=== PATIENT | female | born 1990 | race Caucasian/White ===

== ENCOUNTER 2016-03-06 22:28 | Emergency (ER) | payer OTHER ==
[~2016-03-06] VITALS: Ht 165.1 cm; Wt 113.4 kg
[~2016-03-06 22:28] MED LIST: AZIT250T PO; HYDR1TAB19; PRED50TA PO; PREN1COM3 PO; PROAIR RESPICL90 MCG IH; PROM118S2 PO
[2016-03-06 22:53] VITALS: BP 103/63
--- NOTE | 2016-03-06 22:54 | PHYS DOC ---
Past Medical History Past Medical History: Other Additional Past Medical Histor: eczema, HPV, genital herpes Past Surgical History: Tonsillectomy Additional Past Surgical Histo: bilateral myringotomy with tubes Alcohol Use: None Drug Use: None Adult General Chief Complaint Chief Complaint: PAIN ON URINATION [facility] Patient is a 25 year old female who presents emergency room today with a 2 day history of dysuria and hematuria. Patient states that she's had problems with urinary tract infections in the past. She states that her last one was greater than a year ago. She denies antibiotic use in the past 90 days. Patient denies pelvic pain, vaginal bleeding or vaginal discharge. Patient denies flank pain. Patient states that she finished her menstrual Yesterday. Review of Systems Review of Systems Constitutional: Denies fever or chills [] Eyes: Denies change in visual acuity, redness, or eye pain [] HENT: Denies nasal congestion or sore throat [] Respiratory: Denies cough or shortness of breath [] Cardiovascular: No additional information not addressed in [facility] [] GI: Denies abdominal pain, nausea, vomiting, bloody stools or diarrhea [] : Denies dysuria or hematuria [] Musculoskeletal: Denies back pain or joint pain [] Integument: Denies rash or skin lesions [] Neurologic: Denies headache, focal weakness or sensory changes [] Endocrine: Denies polyuria or polydipsia [] Allergies Allergies Allergies Coded Allergies Type Severity Reaction Last Updated Verified Penicillins Allergy Intermediate rash 04/23/14 Yes Sulfa (Sulfonamide Antibiotics) Allergy Intermediate 04/23/14 Yes amoxicillin trihydrate Allergy Intermediate rash 04/23/14 Yes potassium clavulanate Allergy Intermediate rash 04/23/14 Yes Physical Exam Physical Exam Constitutional: Well developed, well nourished, no acute distress, non-toxic appearance. [] HENT: Normocephalic, atraumatic, bilateral external ears normal, oropharynx moist, no oral exudates, nose normal. [] Eyes: PERRLA, EOMI, conjunctiva normal, no discharge. [] Neck: Normal range of motion, no tenderness, supple, no stridor. [] Cardiovascular:Heart rate regular rhythm, no murmur [] Lungs & Thorax: Bilateral breath sounds clear to auscultation [] Abdomen: Bowel sounds normal, soft, no tenderness, no masses, no pulsatile masses. [] Skin: Warm, dry, no erythema, no rash. [] Back: No tenderness, no CVA tenderness. [] Extremities: No tenderness, no cyanosis, no clubbing, ROM intact, no edema. [] Neurologic: Alert and oriented X 3, normal motor function, normal sensory function, no focal deficits noted. [] Psychologic: Affect normal, judgement normal, mood normal. [] Current Patient Data Vital Signs Vital Signs Date Time Temp Pulse Resp B/P Pulse Ox O2 Delivery O2 Flow Rate FiO2 03/06/16 22:53 97.2 71 16 99 Room Air 97.2 Lab Values Laboratory Tests Test 03/06/16 23:05 Urine Collection Type Unknown Urine Color Arina Urine Clarity Cloudy Urine pH 5.5 Urine Specific [place] >=1.030 Urine Protein 30mg/dL (NEG-TRACE) Urine Glucose (UA) Negativemg/dL (NEG) Urine Ketones (Stick) Negativemg/dL (NEG) Urine Blood Large (NEG) Urine Nitrite Negative (NEG) Urine Bilirubin Small (NEG) Urine Urobilinogen Dipstick 0.2mg/dL (0.2 mg/dL) Urine Leukocyte Esterase Small (NEG) Urine RBC >40/HPF (0-2) Urine WBC 1-4/HPF (0-4) Urine Squamous Epithelial Cells Many/LPF Urine Bacteria Moderate/HPF (0-FEW) Urine Mucus Marked/LPF Urine Test Negative (NEG) EKG EKG [] Radiology/Procedures Radiology/Procedures [] Course & Med Decision Making Course & Med Decision Making Pertinent Labs and Imaging studies reviewed. (See chart for details) [] Dragon Disclaimer Dragon Disclaimer This electronic medical record was generated, in whole or in part, using a voice recognition dictation system. Departure Departure Impression: Primary Impression: Urinary tract infection Disposition: HOME, SELF-CARE Condition: GOOD Referrals: TO VILLAFUERTE MD (PCP) Patient Instructions: Urinary Tract Infection, Shea-[id number] Additional Instructions: 1. Take the medication as prescribed. 2. Review the discharge instructions for self-care and reasons to return the emergency department. 3. Contact primary care doctor's office in the morning to schedule follow-up appointment to be seen within the next 7-10 days. Scripts Phenazopyridine Hcl (Pyridium)200 Mg [id number] Mg PO TID #6 TAB Prov:HERLINDA GAMA 03/06/16 Nitrofurantoin Macrocrystal (Nitrofurantoin)100 Mg Capsule1 Cap PO BID #14 CAP Prov:HERLINDA GAMA 03/06/16 HERLINDA GAMA Mar 06, 2016 22:54
[2016-03-06 23:19] LABS: NEG OBC UR NEG; POS OBC UR POS
[2016-03-06 23:21] LABS: BILIRUBIN,URINE SMALL (NEG); GLUCOSE,URINE NEGATIVE (NEG); NITRITE,URINE NEGATIVE (NEG); PH,URINE 5.5; PROTEIN,URINE 30 mg/dL (NEG-TRACE); UROBILINOGEN,URINE 0.2 mg/dL (0.2 mg/dL)
[2016-03-06 23:32] LABS: BACTERIA,URINE MODERATE /HPF (0-FEW); RBC,URINE >40 /HPF (0-2); SQUAMOUS EPITHELIAL CELL,UR MANY /LPF
[2016-03-06] MEDS ORDERED: NITR100C PO (23:41)
[2016-03-06] MEDS ORDERED: PHEN-318 PO (23:41)
== END 2016-03-06 23:48 | disposition home or self-care (01) ==
LOC: ER 22:28
DX: N39.0 Urinary tract infection, site not specified (principal); Z88.0 Allergy status to penicillin; Z88.1 Allergy status to other antibiotic agents; Z88.2 Allergy status to sulfonamides
CPT/HCPCS: 81001; 81025; 87086; 99284

== ENCOUNTER 2016-03-12 15:06 | Emergency (ER) | payer OTHER ==
[~2016-03-12] VITALS: Ht 165.1 cm; Wt 113.4 kg
[2016-03-12 15:06] VITALS: BP 107/60
[~2016-03-12 15:06] MED LIST changes: +NITR100C PO; +PHEN-318 PO
[2016-03-12 16:26] LABS: NEG OBC UR NEG; POS OBC UR POS
[2016-03-12 16:28] LABS: BILIRUBIN,URINE NEGATIVE (NEG); GLUCOSE,URINE NEGATIVE (NEG); NITRITE,URINE NEGATIVE (NEG); PROTEIN,URINE NEGATIVE (NEG-TRACE); UROBILINOGEN,URINE 0.2 mg/dL (0.2 mg/dL)
[2016-03-12] MEDS ORDERED: KETOROLAC TROMETHAMINE 60 MG/2 ML SYRINGE. IM ONE (16:30)
[2016-03-12] MEDS ORDERED: ORPHENADRINE CITRATE 60 MG/2 ML VIAL. IM ONE (16:30)
[2016-03-12 16:38] LABS: RBC,URINE RARE /HPF (0-2)
[2016-03-12 16:39] LABS: BACTERIA,URINE MODERATE /HPF (0-FEW); SQUAMOUS EPITHELIAL CELL,UR MANY /LPF
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
[2016-03-12] MEDS ORDERED: IBUP-1060 PO (17:32)
[2016-03-12] MEDS ORDERED: CYCL10TA2 PO (17:32)
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
== END 2016-03-12 18:01 | disposition home or self-care (01) ==
LOC: ER 15:06
DX: M54.2 Cervicalgia (principal); Z88.0 Allergy status to penicillin; Z88.1 Allergy status to other antibiotic agents; Z88.2 Allergy status to sulfonamides; Z88.8 Allergy status to other drugs, medicaments and biological substances; V49.40XA Driver injured in collision with unspecified motor vehicles in traffic accident, initial encounter; Y93.I9 Activity, other involving external motion; Y92.410 Unspecified street and highway as the place of occurrence of the external cause; Y99.8 Other external cause status
CPT/HCPCS: 72125; 81001; 81025; 87086; 96372; 99285; J1885; J2360

== ENCOUNTER 2016-06-04 13:10 | Emergency (ER) | payer OTHER ==
[~2016-06-04] VITALS: Ht 165.1 cm; Wt 108.9 kg
[~2016-06-04 13:10] MED LIST changes: +CYCL10TA2 PO; +IBUP-1060 PO
[2016-06-04 13:30] VITALS: BP 105/57
--- NOTE | 2016-06-04 14:25 | RAD ---
Left shoulder, 3 views, 06/04/2016: History: Pain, injury No fracture or dislocation is identified. No significant arthritic change is seen. IMPRESSION: No significant left shoulder abnormality is detected.
[2016-06-04] MEDS ORDERED: NAPR500T3 PO (14:27)
[2016-06-04] MEDS ORDERED: ORPH100T PO (14:27)
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
== END 2016-06-04 14:35 | disposition home or self-care (01) ==
LOC: ER 13:10
DX: S46.912A Strain of unspecified muscle, fascia and tendon at shoulder and upper arm level, left arm, initial encounter (principal); E66.9 Obesity, unspecified; Z88.1 Allergy status to other antibiotic agents; Z88.0 Allergy status to penicillin; Z88.2 Allergy status to sulfonamides; Z88.8 Allergy status to other drugs, medicaments and biological substances; Z68.39 Body mass index [BMI] 39.0-39.9, adult; W18.40XA Slipping, tripping and stumbling without falling, unspecified, initial encounter; Y93.89 Activity, other specified; Y92.89 Other specified places as the place of occurrence of the external cause; Y99.8 Other external cause status
CPT/HCPCS: 73030; 99284

== ENCOUNTER → 2016-07-12 | Outpatient (CLI) | payer OTHER ==
[~2016-07-12] MED LIST changes: +NAPR500T3 PO; +ORPH100T PO
--- NOTE | 2016-07-12 11:31 | KCIC ---
Indication: Abdominal pain. Patient has recent history of abdominal surgery. The visualized pancreas is unremarkable. The aorta is nonaneurysmal. The IVC is unremarkable. The liver is normal in size. There is increased echogenicity throughout the liver consistent with fatty infiltration. No discrete liver mass is detected. The gallbladder is without stones or sludge. No wall thickening or pericholecystic fluid is identified. The spleen is mildly enlarged at 13.1 cm. The kidneys are unremarkable. No calculi or hydronephrosis is identified. There is no ascites. IMPRESSION: 1. Fatty infiltration of the liver. 2. No evidence of cholelithiasis or acute cholecystitis. 3. Mild splenomegaly. Electronically signed by: Zhang Escamilla MD (07/12/2016 11:27 AM)
== END | disposition home or self-care (01) ==
LOC: KCIC US 09:17
PROVIDERS: ATTEND Family Medicine
DX: K76.0 Fatty (change of) liver, not elsewhere classified (principal); R16.1 Splenomegaly, not elsewhere classified
CPT/HCPCS: 76700

== ENCOUNTER 2017-02-25 15:58 | Emergency (ER) | payer OTHER | END 2017-02-25 16:47 | disposition home or self-care (01) | LOC: ER 15:58 | DX: S00.33XA Contusion of nose, initial encounter (principal); Z88.0 Allergy status to penicillin; Z88.1 Allergy status to other antibiotic agents; Z88.2 Allergy status to sulfonamides; Z88.8 Allergy status to other drugs, medicaments and biological substances; W51.XXXA Accidental striking against or bumped into by another person, initial encounter; Y93.89 Activity, other specified; Y99.8 Other external cause status; Y92.89 Other specified places as the place of occurrence of the external cause | CPT/HCPCS: 99281 ==

== ENCOUNTER 2017-09-03 20:35 | Emergency (ER) | payer OTHER ==
[2017-09-03 20:54] LABS: URINE HCG POC HCG NEGATIVE (Negative)
[2017-09-03 21:16] LABS: BILIRUBIN,URINE NEGATIVE (NEG); CLARITY,URINE CLEAR; COLOR,URINE YELLOW; GLUCOSE,URINE NEGATIVE (NEG); NITRITE,URINE NEGATIVE (NEG); PH,URINE 5.5; PROTEIN,URINE NEGATIVE (NEG-TRACE); UROBILINOGEN,URINE 0.2 mg/dL (0.2 mg/dL)
[2017-09-03 21:37] LABS: BACTERIA,URINE FEW /HPF (0-FEW); SQUAMOUS EPITHELIAL CELL,UR FEW /LPF; WBC,URINE 0 /HPF (0-4)
[2017-09-03] MEDS: KETOROLAC 15 MG/ML VIAL. IM (22:13)
[2017-09-03] MEDS ORDERED: ORPHENADRINE CITRATE 60 MG/2 ML VIAL. IM (22:30)
== END 2017-09-03 22:16 | disposition home or self-care (01) ==
LOC: ER 20:35
DX: S29.012A Strain of muscle and tendon of back wall of thorax, initial encounter (principal); R11.0 Nausea; Z88.0 Allergy status to penicillin; Z88.2 Allergy status to sulfonamides; Z88.1 Allergy status to other antibiotic agents; X58.XXXA Exposure to other specified factors, initial encounter; Y93.89 Activity, other specified; Y92.89 Other specified places as the place of occurrence of the external cause; Y99.8 Other external cause status
CPT/HCPCS: 81001; 81025; 96372; 99283; J1885

== ENCOUNTER → 2020-11-17 | Outpatient (CLI) | payer MEDICAID ==
[2017-09-03 20:43] VITALS: BP 127/71
[~2020-11-17] MED LIST changes: +NAPR-514 PO; -NAPR500T3 PO; -PROM118S2 PO; +PROM118S5 PO
--- NOTE | 2020-11-17 08:08 | RAD ---
EXAM: Carotid Doppler sonogram. HISTORY: Amaurosis fugax. Atherosclerosis. TECHNIQUE: Bailey scale and color Doppler sonographic evaluation of the neck with spectral waveform otoniel lysis was performed and static images are submitted for review. FINDINGS: The peak systolic velocity within the right common carotid artery is 102 cm/sec. The peak s ystolic velocity within the right internal carotid artery is 86 cm/sec and the end diastolic velocity within the right internal carotid artery is 35 cm/sec. The right ICA/CCA ratio is 0.89. The peak systolic velocity within the left common carotid artery is 106 cm/sec. The peak systolic jose francisco ocity within the left internal carotid artery is 99 cm/sec and the end diastolic velocity within the left internal carotid artery is 39 cm/sec. The left ICA/CCA ratio is 0.93. There is normal antegrade flow within both vertebral arteries. IMPRESSION: Doppler findings consistent with less than 50 percent stenosis involving the internal car otid arteries. PQRS Compliance Statement - Stenosis calculations for CT, MR and conventional angiography are based u graeme measurement of the distal ICA diameter in accordance with the NASCET methodology. Stenosis calcu lations for carotid ultrasound studies are derived from validated velocity criteria which are known t o correlate with the NASCET methodology. Electronically signed by: Mary Corrales MD (11/17/2020 8:06 AM) [id number]
--- NOTE | 2020-11-17 10:35 | CARD ---
MR#: [id number] Date of Study: 11/17/2020 Ordering Physician: TO VILLAFUERTE, Referring Physician: TO VILLAFUERTE, Tech: Niko Barber [facility] APPROVED REPORT EXAM: Two-dimensional and M-mode echocardiogram with Doppler and color Doppler. Other Information Quality : GoodHR: 56bpm Rhythm : NSR INDICATION CVA/TIA Amaurosis Fugax of right eye RISK FACTORS Obesity 2D DIMENSIONS Left Atrium(2D)3.4 (1.6-4.0cm)IVSd0.8 (0.7-1.1cm) Aortic Root(2D)3.0 (2.0-3.7cm)LVDd4.9 (3.9-5.9cm) LVOT Diameter2.2 (1.8-2.4cm)PWd0.8 (0.7-1.1cm) LVDs3.2 (2.5-4.0cm)FS (%) 34.6 % SV71.4 mlLVEF(%)63.6 (>50%) Aortic Valve AoV Peak Aldo.123.2cm/sAoV VTI25.6cm AO Peak GR.6.1mmHgLVOT Peak Aldo.95.3cm/s AO Mean GR.4mmHgAVA (VMAX)2.89cm2 Mitral Valve MV E Eouafsjh86.3cm/sMV E Peak Gr.3mmHg MV DECEL [id number] A Lyjxxmxl90.1cm/s MV E Mean Gr.2mmHgE/A Ratio1.9 Pulmonary Valve PV Peak Squnmrnt84.1cm/s Tricuspid Valve TR P. Dkavkkvy609by/sTR Peak Gr.17mmHg Pulmonary Vein S1 Khruzfzu69.1cm/sD2 Wiuuyqeb66.3cm/s LEFT VENTRICLE The left ventricle is normal size. There is normal left ventricular wall thickness. The left ventricu lar systolic function is normal and the ejection fraction is within normal range. EF 55% There is nor mal LV segmental wall motion. Tissue Doppler imaging reveals mild left ventricular diastolic dysfunct ion. No left ventricle thrombus noted on this study. There is no ventricular septal defect visualized . There is no left ventricular aneurysm. There is no mass noted in the left ventricle. RIGHT VENTRICLE The right ventricle is normal size. There is normal right ventricular wall thickness. The right ventr icular systolic function is normal. ATRIA The left atrium size is normal. The right atrium size is normal. The interatrial septum is intact wit h no evidence for an atrial septal defect or patent foramen ovale as noted on 2-D and color doppler i maging. Agitated saline study did not reveal any right to left shunting. AORTIC VALVE The aortic valve is normal in structure and function. Doppler and Color Flow revealed no significant aortic regurgitation. There is no significant aortic valvular stenosis. There is no aortic valvular v egetation. MITRAL VALVE The mitral valve is normal in structure and function. There is no evidence of mitral valve prolapse. There is no mitral valve stenosis. Doppler and Color-flow revealed trace to mild mitral regurgitation . TRICUSPID VALVE The tricuspid valve is normal in structure and function. Doppler and Color Flow revealed trace tricus pid regurgitation. The PA pressure was estimated at 20 mmHg. There is no tricuspid valve prolapse or vegetation. There is no tricuspid valve stenosis. PULMONIC VALVE Doppler and Color Flow revealed no pulmonic valvular regurgitation. There is no pulmonic valvular nicolle nosis. GREAT VESSELS The aortic root is normal in size. The ascending aorta is normal in size. The IVC is normal in size a nd collapses >50% with inspiration. PERICARDIAL EFFUSION There is no pleural effusion. There is no evidence of significant pericardial effusion. Critical Notification Critical Value: No <Conclusion> The left ventricular systolic function is normal and the ejection fraction is within normal range. EF 55% There is normal LV segmental wall motion. The interatrial septum is intact with no evidence for an atrial septal defect or patent foramen ovale as noted on 2-D and color doppler imaging. Agitated saline study did not reveal any right to left sh unting. Signed by : Beck Smith, Electronically Approved : 11/17/2020 10:35:39
== END ==
LOC: US 06:34
PROVIDERS: ATTEND Family Medicine
DX: I34.0 Nonrheumatic mitral (valve) insufficiency (principal); G45.3 Amaurosis fugax; R55 Syncope and collapse
CPT/HCPCS: 93306; 93880

== ENCOUNTER → 2021-01-25 | Outpatient (CLI) | payer MEDICAID ==
[2017-09-03 20:43] VITALS: BP 127/71
[~2021-01-25] MED LIST changes: +CYCL10TA19 PO; -CYCL10TA2 PO
--- NOTE | 2021-01-25 11:09 | KCIC ---
Exam Date: 01/25/2021 8:20 AM MRI LEFT LOWER EXTREMITY JOINT WITHOUT Indication: Reason: INTERNAL DERANGEMENT OF LEFT KNEE / Spl. Instructions: / History: Lt knee pain x 6 yrs, NKI. Generalized knee pain, denies swelling.. TECHNIQUE: Routine multiplanar MR imaging of the knee was performed without contrast. FINDINGS: The medial and lateral menisci are intact and within normal limits for age. The anterior cruciate ligament, posterior cruciate ligament, medial collateral ligament, and lateral collateral ligament complex are intact. Patellofemoral extensor mechanism and popliteus tendon are w ithin normal limits. No full thickness chondral defects are identified. Bone marrow demonstrates benign signal on all seq uences. No acute fracture is seen. Physiologic joint fluid is present. There is no popliteal cyst. IMPRESSION: Intact menisci and ligaments. No acute fracture. Electronically signed by: Dagoberto Holden MD (01/25/2021 11:07 AM) [id number]
== END ==
LOC: KCIC MRI 08:05
PROVIDERS: ATTEND Family Medicine
DX: M23.92 Unspecified internal derangement of left knee (principal)
CPT/HCPCS: 73721

== ENCOUNTER → 2021-05-12 | Outpatient (CLI) | payer MEDICAID ==
[2017-09-03 20:43] VITALS: BP 127/71
[~2021-05-12] MED LIST changes: +CONTRAST GIVEN. MC PRN; +IOHEXOL 240 MG/ML 50ML VIAL. PO ONE; +IOHEXOL 300 MG/ML 100ML VIAL. IV ONE
--- NOTE | 2021-05-12 16:08 | KCIC ---
EXAM: CT ABDOMEN/PELVIS WITH AND WITHOUT CONTRAST. HISTORY: Pelvic pain, cervical cancer. TECHNIQUE: Computed tomography of the abdomen and pelvis was performed before and after the intraveno us administration of iodinated contrast. One or more of the following individualized dose reduction t echniques were utilized for this examination: 1. Automated exposure control. 2. Adjustment of the mA and/or kV according to patient size. 3. Use of iterative reconstruction technique. COMPARISON: None. FINDINGS: Lung windows through the visualized portions of the bases reveal no abnormality. Bone windo ws reveal no suspicious lesions. Hypoattenuation of the hepatic rectum indicates diffuse hepatic steatosis. The spleen is mildly enlar ged at 14.2 cm. The pancreas, adrenal glands, gallbladder and kidneys are unremarkable. There are no pathologically enlarged lymph nodes. The uterus and left ovary are surgically absent. A follicle in the right ovary measures 1.9 cm. A sma ll amount of free pelvic fluid is likely physiologic. The appendix is surgically absent. There is no small bowel obstruction. There are changes of mesh rep air of an umbilical hernia. IMPRESSION: 1. No acute process is identified. No evidence of metastatic disease. 2. Diffuse hepatic steatosis. Mild splenomegaly. Electronically signed by: Edison oCles MD (05/12/2021 4:06 PM) [id number]
== END ==
LOC: KCIC CT 12:27
PROVIDERS: ATTEND Obstetrics & Gynecology
DX: R16.1 Splenomegaly, not elsewhere classified (principal); K76.0 Fatty (change of) liver, not elsewhere classified; N83.01 Follicular cyst of right ovary; Z90.721 Acquired absence of ovaries, unilateral; Z90.710 Acquired absence of both cervix and uterus; Z98.890 Other specified postprocedural states
CPT/HCPCS: 74178; Q9966; Q9967